=== PATIENT | male | born 1935 | race Caucasian/White ===

== ENCOUNTER 2016-08-04 13:04 | Emergency (ER) | payer MEDICARE, BC ==
[~2016-08-04] VITALS: Ht 177.8 cm; Wt 77.3 kg
[~2016-08-04 13:04] MED LIST: ATENOLOL; ATENOLOL PO; BISCOLAX5 MG PO; CIPRO 500MG TA500 MG PO; CLARITIN 1010 MG/TAB PO; DOXYCYCLINE 10100 MG PO; GLUCOSAMINE & C1 CA1 PO; LEVAQUIN 5500 MG/TA1 PO; MAGNESIA C1.75 GM/30 PO; MULTIPLE VITAMI1 TAB PO; NORCO 325 MG-51 TAB PO; PREDNISONE20 MG PO; PROMETHAZINE V473 M2 PO; TENORMIN 2525 MG/TAB PO; VENTOLIN0.09 MG IH; ZOCOR; ZOCOR PO; ZOCOR5 MG; ZOCOR5 MG PO
[2016-08-04 13:05] VITALS: BP 181/93; TEMP 97.5
[2016-08-04] MEDS ORDERED: OSCAL 500 TAB500 MG PO (13:22)
[2016-08-04] MEDS ORDERED: MELATONIN5 M1 PO (13:22)
[2016-08-04] MEDS ORDERED: LIPITOR20 MG PO (13:23)
[2016-08-04] MEDS ORDERED: ASPIRIN 81M81 MG/TA2 PO (13:23)
[2016-08-04] MEDS ORDERED: TYLENOL 325MG325 MG PO (13:24)
[2016-08-04] MEDS ORDERED: DOXYCYCLINE HY100 MG PO (13:24)
[2016-08-04 14:08] LABS: INFLUENZA B NEGATIVE
[2016-08-04] MEDS ORDERED: LEVAQUIN 5500 MG/TA1 PO (14:31)
[2016-08-04 14:40] VITALS: PULSE 71
== END 2016-08-04 14:40 | disposition home or self-care (01) ==
LOC: COL.ER 13:04
PROVIDERS: Emergency Medicine
DX: J01.11 Acute recurrent frontal sinusitis (principal)

== ENCOUNTER 2016-09-04 07:28 | Emergency (ER) | payer MEDICARE, BC ==
[~2016-09-04] VITALS: Ht 177.8 cm; Wt 77.3 kg
[~2016-09-04 07:28] MED LIST changes: +ASPIRIN 81M81 MG/TA2 PO; +DOXYCYCLINE HY100 MG PO; +LIPITOR20 MG PO; +MELATONIN5 M1 PO; +OSCAL 500 TAB500 MG PO; +TYLENOL 325MG325 MG PO
[2016-09-04 07:33] VITALS: BP 187/95; PULSE 66
[2016-09-04 08:00] LABS: BASO # 0.1 (0.0-0.2); BASO % 0.8 % (0.0-2.0); EOS # 0.2 (0.0-0.7); EOS % 2.1 % (0-4.0); GRAN # 4.8 (1.4-6.5); GRAN % 66.2 % (42.2-75.2); HEMATOCRIT 41.2 % (42.0-52.0); HEMOGLOBIN 14.1 g/dl (13.5-18.0); LYMPH # 1.3 (1.2-3.4); LYMPH % 17.4 % (20.0-51.0); MEAN CELL VOLUME 93 fl (80.0-100.0); MEAN CORPUSCULAR HEMOGLOBIN 32 pg (27.0-31.0); MEAN CORPUSCULAR HGB CONC 34 g/dl (33.0-37.0); MEAN PLATELET VOLUME 8.9 fl (7.4-10.4); MONO # 0.9 (0.1-0.6); MONO % 12.4 % (1.7-9.3); PLATELET COUNT 228 K/mm3 (130-400); RED BLOOD COUNT 4.41 M/mm3 (4.20-5.60); REDCELL DISTRIBUTION WIDTH-CV 12.5 % (11.5-14.5); WHITE BLOOD COUNT 7.2 K/mm3 (4.8-10.8)
[2016-09-04 08:01] LABS: PROTHROMBIN TIME 11.3 SECONDS (9.7-12.8)
[2016-09-04 08:13] LABS: INFLUENZA B NEGATIVE
[2016-09-04 08:24] LABS: ADJUSTED CALCIUM 10.1 mg/dL (8.4-10.2); ALANINE AMINOTRANSFERASE 50 U/L (21-72); ALBUMIN 3.9 gm/dL (3.5-5.0); ALKALINE PHOSPHATASE 77 U/L (50-136); ANION GAP 10 mmol/L (7-16); BILIRUBIN,TOTAL 1.2 mg/dL (0.0-1.0); BLOOD UREA NITROGEN 27 mg/dL (9-20); C-REACTIVE PROTEIN 0.7 mg/dL (0.0-0.9); CARBON DIOXIDE 30 mmol/L (22-30); CHLORIDE 98 mmol/L (98-107); CREATININE, serum 1.78 mg/dL (0.66-1.25); GLUCOSE 100 mg/dL (74-106); POTASSIUM 4.4 mmol/L (3.4-5.0); SODIUM 138 mmol/L (137-145); TOTAL PROTEIN 7.7 gm/dL (6.4-8.2)
[2016-09-04 08:33] LABS: TROPONIN-I < 0.012 ng/mL (0.000-0.034)
[2016-09-04] MEDS ORDERED: RELAFEN 50500 MG/TAB PO (08:57)
[2016-09-04] MEDS ORDERED: PREDNISONE10 MG PO (09:41)
== END 2016-09-04 10:13 | disposition home or self-care (01) ==
LOC: COL.ER 07:28
PROVIDERS: Family Medicine
DX: R53.83 Other fatigue (principal); R53.1 Weakness; R00.1 Bradycardia, unspecified; J44.9 Chronic obstructive pulmonary disease, unspecified; I10 Essential (primary) hypertension

== ENCOUNTER 2017-05-21 07:17 | Day surgery (SDC) | payer MEDICARE, BC ==
[~2017-05-21] VITALS: Ht 177.8 cm; Wt 75.5 kg
[~2017-05-21 07:17] MED LIST changes: +PREDNISONE10 MG PO; +RELAFEN 50500 MG/TAB PO
[2017-05-21] MEDS ORDERED: RELAFEN 50500 MG/TAB PO (08:22)
[2017-05-21 08:59] VITALS: BP 122/78; PULSE 65; TEMP 97.7
[2017-05-21 09:48] VITALS: BP 114/70; PULSE 61; TEMP 97.5
[2017-05-21 10:00] VITALS: BP 122/62; PULSE 69
[2017-05-21 10:15] VITALS: BP 121/90; PULSE 68
[2017-05-21 10:30] VITALS: BP 104/69; PULSE 66
== END 2017-05-21 10:45 | disposition home or self-care (01) ==
LOC: SDCO 07:17
DX: D12.2 Benign neoplasm of ascending colon (principal); K57.30 Diverticulosis of large intestine without perforation or abscess without bleeding; D12.4 Benign neoplasm of descending colon; K64.0 First degree hemorrhoids; I10 Essential (primary) hypertension; E78.5 Hyperlipidemia, unspecified
CPT/HCPCS: OP; J2250; J3010; J7030

== ENCOUNTER 2018-06-03 06:47 | Day surgery (SDC) | payer MEDICARE, BC ==
[~2018-06-03] VITALS: Ht 177.8 cm; Wt 77.5 kg
[2018-06-03] MEDS ORDERED: ASPIRIN 81M81 MG/TA2 PO (07:12)
[2018-06-03] MEDS ORDERED: ASPI325T6 PO (07:13)
[2018-06-03] MEDS ORDERED: ESTER C PO (07:14)
[2018-06-03] MEDS ORDERED: COLACE 100100 MG/CAP PO (07:14)
[2018-06-03] MEDS ORDERED: OS-CAL 500 + D1 TAB PO (07:15)
[2018-06-03] MEDS ORDERED: PLENDIL 2.5MG2.5 MG PO (07:15)
[2018-06-03 07:17] VITALS: BP 145/80; PULSE 61; TEMP 97.2
[2018-06-03 08:55] VITALS: BP 130/82; PULSE 73; TEMP 96.7
[2018-06-03 09:10] VITALS: BP 126/82; PULSE 69
[2018-06-03 09:25] VITALS: BP 114/78; PULSE 76
== END 2018-06-03 09:59 | disposition home or self-care (01) ==
LOC: SDCO 06:47
DX: Z12.11 Encounter for screening for malignant neoplasm of colon (principal); Z86.010 Personal history of colon polyps; D12.0 Benign neoplasm of cecum; K64.0 First degree hemorrhoids; K57.30 Diverticulosis of large intestine without perforation or abscess without bleeding
CPT/HCPCS: J2250; J3010; J7030

== ENCOUNTER 2018-10-06 20:34 | Emergency (ER) | payer MEDICARE, BC ==
[~2018-10-06 20:34] MED LIST changes: +ASPI325T6 PO; +COLACE 100100 MG/CAP PO; +ESTER C PO; +OS-CAL 500 + D1 TAB PO; +PLENDIL 2.5MG2.5 MG PO
== END 2018-10-06 20:59 | disposition left against medical advice (07) ==
LOC: COL.ER 20:34
DX: Z72.9 Problem related to lifestyle, unspecified (principal)

== ENCOUNTER → 2018-12-23 | Outpatient (CLI) | payer MEDICARE, BC ==
[~2018-12-23] MED LIST changes: +CATAPRES 0.1MG0.1 MG PO
== END ==
LOC: COL.RAD 08:02
DX: I12.9 Hypertensive chronic kidney disease with stage 1 through stage 4 chronic kidney disease, or unspecified chronic kidney disease (principal); N18.3 Chronic kidney disease, stage 3 (moderate)

== ENCOUNTER 2019-08-18 07:32 | Emergency (ER) | payer MEDICARE, BC ==
[~2019-08-18] VITALS: Ht 177.8 cm; Wt 80.9 kg
[2019-08-18 07:48] VITALS: TEMP 97.7
[2019-08-18 08:39] LABS: BASO % 0.5 % (0.0-2.0); EOS # 0.1 (0.0-0.7); EOS % 1.2 % (0-4.0); GRAN # 6.6 (1.4-6.5); GRAN % 79.7 % (42.2-75.2); HEMOGLOBIN 12.9 g/dl (13.5-18.0); LYMPH # 0.7 (1.2-3.4); MEAN CELL VOLUME 99 fl (80.0-100.0); MEAN CORPUSCULAR HEMOGLOBIN 32 pg (27.0-31.0); MEAN CORPUSCULAR HGB CONC 32 g/dl (33.0-37.0); MEAN PLATELET VOLUME 9.5 fl (7.4-10.4); MONO # 0.8 (0.1-0.6); MONO % 9.1 % (1.7-9.3); PLATELET COUNT 260 K/mm3 (130-400); RED BLOOD COUNT 4.06 M/mm3 (4.20-5.60); REDCELL DISTRIBUTION WIDTH-CV 14.2 % (11.5-14.5)
[2019-08-18 08:50] LABS: ALANINE AMINOTRANSFERASE 14 U/L (21-72); ALBUMIN 3.6 gm/dL (3.5-5.0); ALKALINE PHOSPHATASE 86 U/L (50-136); ANION GAP 5 mmol/L (7-16); AST,SGOT 21 U/L (15-37); BILIRUBIN,TOTAL 0.6 mg/dL (0.0-1.0); BLOOD UREA NITROGEN 31 mg/dL (9-20); C-REACTIVE PROTEIN 1.3 mg/dL (0.0-0.9); CALCIUM 9.1 mg/dL (8.4-10.2); CARBON DIOXIDE 26 mmol/L (22-30); CHLORIDE 108 mmol/L (98-107); CREATININE, serum 1.92 (0.66-1.25); GLUCOSE 123 mg/dL (74-106); LIPASE 212 U/L (23-300); MAGNESIUM 2.1 mg/dL (1.6-2.3); POTASSIUM 4.9 mmol/L (3.4-5.0); SODIUM 139 mmol/L (137-145); TOTAL PROTEIN 6.9 gm/dL (6.4-8.2)
[2019-08-18] MEDS ORDERED: ZYLOPRIM 300MG300 MG PO (08:54)
[2019-08-18] MEDS ORDERED: LEXAPRO 10MG10 MG PO (08:56)
[2019-08-18] MEDS ORDERED: BUSPAR5 MG PO (08:56)
[2019-08-18 09:00] LABS: TROPONIN-I < 0.012 ng/mL (0.000-0.035)
[2019-08-18 09:06] LABS: COLLECTION METHOD CLEAN CATCH
[2019-08-18 09:16] LABS: PH 5 (5-8); SQUAMOUS EPITHELIAL None Seen /hpf; URINE APPEARANCE Clear; URINE BACTERIA None Seen /hpf; URINE BILIRUBIN Negative (NEGATIVE); URINE BLOOD 3+ (NEGATIVE); URINE COLOR Yellow; URINE GLUCOSE Negative (NEGATIVE); URINE KETONE Negative (NEGATIVE); URINE LEUKOCYTE ESTERASE Negative (NEGATIVE); URINE NITRATE Negative (NEGATIVE); URINE PROTEIN(semi-quant) 2+ (NEGATIVE); URINE RBC >50 /hpf; URINE UROBILINOGEN Negative (NEGATIVE)
[2019-08-18] MEDS ORDERED: NORCO 325 MG-51 TAB PO (10:24)
[2019-08-18] MEDS ORDERED: OMNICEF 300MG300 MG PO (10:24)
[2019-08-18 10:53] VITALS: BP 179/98; PULSE 55
== END 2019-08-18 10:55 | disposition home or self-care (01) ==
LOC: COL.ER 07:32
PROVIDERS: Emergency Medicine
DX: S22.41XA Multiple fractures of ribs, right side, initial encounter for closed fracture (principal); E78.00 Pure hypercholesterolemia, unspecified; I10 Essential (primary) hypertension; W00.0XXA Fall on same level due to ice and snow, initial encounter; Y92.410 Unspecified street and highway as the place of occurrence of the external cause
CPT/HCPCS: A9284; J3010; J7040